=== PATIENT | male | born 1950 | race Caucasian/White ===

== ENCOUNTER 2017-03-12 05:30 | Day surgery (SDC) | payer OTHER ==
[~2017-03-12] VITALS: Ht 167.6 cm; Wt 78.6 kg
[2017-03-12] MEDS ORDERED: HYALURONATE SODIUM 12 MG/ML 0.8 ML SYRINGE IO ONE (05:31)
[2017-03-12] MEDS ORDERED: MIDAZOLAM HCL 2 MG/2 ML VIAL IVP ONE (05:31)
[2017-03-12] MEDS ORDERED: EPINEPHrine 1:1,000 [1 MG/ML] AMP IM ONE (05:31)
[2017-03-12] MEDS ORDERED: POVIDONE-IODINE 10% 15 ML SOLUTION UD TP ONE (05:31)
[2017-03-12] MEDS ORDERED: PILOCARPINE HCL 4% 15 ML OPHTHALMIC SOLUTION OS ONE (05:31)
[2017-03-12] MEDS ORDERED: FentaNYL CITRATE-PF 100 MCG/2 ML VIAL IVP ONE (05:31)
[2017-03-12] MEDS ORDERED: MOXIFLOXACIN HCL 0.5% 3 ML OPHTHALMIC SOLUTION ONE (05:40)
[2017-03-12] MEDS ORDERED: TETRACAINE HCL/PF 0.5% 4 ML OPHTHALMIC SOLUTION ONE (05:41)
[2017-03-12] MEDS ORDERED: DICLOFENAC SODIUM 0.1% 2.5 ML OPHTHALMIC SOLUTION ONE (05:41)
[2017-03-12] MEDS ORDERED: CYCLOPENTOLATE HCL 2% 2 ML OPHTHALMIC SOLUTION ONE (05:41)
[2017-03-12] MEDS ORDERED: PHENYLEPHRINE HCL 2.5% 2 ML OPHTHALMIC SOLUTION ONE (05:41)
[2017-03-12] MEDS ORDERED: RINGERS SOLUTION,LACTATED 500 ML IV ONE ×2 (05:42→06:00)
[2017-03-12] MEDS ORDERED: ACETAMINOPHEN 325 MG TABLET PO PRN (06:00)
[2017-03-12] MEDS ORDERED: ASPI-1182 PO (06:14)
[2017-03-12] MEDS ORDERED: LISI-662 PO (06:15)
[2017-03-12] MEDS ORDERED: ATOR40TA28 PO (06:15)
[2017-03-12] MEDS: MOXIFLOXACIN HCL 0.5% 3 ML OPHTHALMIC SOLUTION OS SCH ×3 (06:40→06:52)
[2017-03-12] MEDS: TETRACAINE HCL/PF 0.5% 4 ML OPHTHALMIC SOLUTION OS SCH ×3 (06:40→06:51)
[2017-03-12] MEDS: PHENYLEPHRINE HCL 2.5% 2 ML OPHTHALMIC SOLUTION OS SCH ×3 (06:41→06:51)
[2017-03-12] MEDS: CYCLOPENTOLATE HCL 2% 2 ML OPHTHALMIC SOLUTION OS SCH ×3 (06:41→06:51)
[2017-03-12] MEDS: DICLOFENAC SODIUM 0.1% 2.5 ML OPHTHALMIC SOLUTION OS SCH ×3 (06:41→06:52)
== END 2017-03-12 09:25 | disposition home or self-care (01) ==
LOC: SURGERY 05:30
PROVIDERS: ATTEND Ophthalmology
DX: H25.12 Age-related nuclear cataract, left eye (principal); I10 Essential (primary) hypertension; A41.9 Sepsis, unspecified organism; F17.210 Nicotine dependence, cigarettes, uncomplicated; Z86.73 Personal history of transient ischemic attack (TIA), and cerebral infarction without residual deficits; Z79.01 Long term (current) use of anticoagulants; Z72.89 Other problems related to lifestyle; Z79.82 Long term (current) use of aspirin
CPT/HCPCS: 66982; 93005; C1780; J2250; J3010; J7120; J0171; J3490

== ENCOUNTER 2017-04-30 05:32 | Day surgery (SDC) | payer OTHER ==
[~2017-04-30] VITALS: Ht 170.2 cm; Wt 79.1 kg
[~2017-04-30 05:32] MED LIST: ASPI-1182 PO; ATOR40TA28 PO; LISI-662 PO
[2017-04-30] MEDS ORDERED: PrednisoLONE ACETATE 1% 5 ML OPHTHALMIC SUSPENSION OS ONE (05:33)
[2017-04-30] MEDS ORDERED: POVIDONE-IODINE 10% 15 ML SOLUTION UD TP ONE (05:33)
[2017-04-30] MEDS ORDERED: LIDOCAINE HCL/PF 1% 2 ML VIAL INJ ONE (05:33)
[2017-04-30] MEDS ORDERED: HYALURONATE SODIUM 12 MG/ML 0.8 ML SYRINGE IO ONE (05:33)
[2017-04-30] MEDS ORDERED: EPINEPHrine 1:1,000 [1 MG/ML] AMP IM ONE (05:33)
[2017-04-30] MEDS ORDERED: CYCLOPENTOLATE HCL 2% 2 ML OPHTHALMIC SOLUTION ONE (05:51)
[2017-04-30] MEDS ORDERED: MOXIFLOXACIN HCL 0.5% 3 ML OPHTHALMIC SOLUTION ONE (05:51)
[2017-04-30] MEDS ORDERED: DICLOFENAC SODIUM 0.1% 2.5 ML OPHTHALMIC SOLUTION ONE (05:51)
[2017-04-30] MEDS ORDERED: TETRACAINE HCL/PF 0.5% 4 ML OPHTHALMIC SOLUTION ONE (05:51)
[2017-04-30] MEDS ORDERED: PHENYLEPHRINE HCL 2.5% 2 ML OPHTHALMIC SOLUTION ONE (05:52)
[2017-04-30] MEDS ORDERED: RINGERS SOLUTION,LACTATED 500 ML IV ONE ×2 (05:53→06:00)
[2017-04-30] MEDS: PHENYLEPHRINE HCL 2.5% 2 ML OPHTHALMIC SOLUTION OD SCH ×3 (06:23→06:33)
[2017-04-30] MEDS: DICLOFENAC SODIUM 0.1% 2.5 ML OPHTHALMIC SOLUTION OD SCH ×3 (06:23→06:33)
[2017-04-30] MEDS: MOXIFLOXACIN HCL 0.5% 3 ML OPHTHALMIC SOLUTION OD SCH ×3 (06:24→06:34)
[2017-04-30] MEDS: CYCLOPENTOLATE HCL 2% 2 ML OPHTHALMIC SOLUTION OD SCH ×3 (06:24→06:34)
[2017-04-30] MEDS: TETRACAINE HCL/PF 0.5% 4 ML OPHTHALMIC SOLUTION OD SCH ×3 (06:24→06:33)
[2017-04-30] MEDS ORDERED: ACET-784 PO (06:33)
[2017-04-30] MEDS ORDERED: DICL50TA7 PO (06:33)
[2017-04-30] MEDS ORDERED: ACETAMINOPHEN 325 MG TABLET PO PRN (07:30)
[2017-04-30] MEDS ORDERED: FentaNYL CITRATE-PF 100 MCG/2 ML VIAL IVP ONE (12:00)
[2017-04-30] MEDS ORDERED: MIDAZOLAM HCL 2 MG/2 ML VIAL IVP ONE (12:00)
== END 2017-04-30 09:30 | disposition home or self-care (01) ==
LOC: SURGERY 05:32
PROVIDERS: ATTEND Ophthalmology
DX: H25.11 Age-related nuclear cataract, right eye (principal); I10 Essential (primary) hypertension; E78.5 Hyperlipidemia, unspecified; F17.210 Nicotine dependence, cigarettes, uncomplicated; Z86.73 Personal history of transient ischemic attack (TIA), and cerebral infarction without residual deficits; E66.01 Morbid (severe) obesity due to excess calories; Z72.89 Other problems related to lifestyle; Z68.27 Body mass index [BMI] 27.0-27.9, adult; Z79.899 Other long term (current) drug therapy
CPT/HCPCS: 66984; C1780; J0171; J2250; J3010; J3490 ×2; J7120